=== PATIENT | female | born 1985 | race African-American/Black ===

== ENCOUNTER 2016-09-05 12:28 | Inpatient (IN) | payer OTHER ==
[2016-09-05 18:22] VITALS: BMI 23.3
--- NOTE | 2016-09-05 19:36 | HP ---
CIWA Score - CIWA Score Nausea/Vomitin-Mild Nausea/No Vomiting Muscle Tremors: 4-Moderate,w/Arms Extend Anxiety: 4-Mod. Anxious/Guarded Agitation: 4-Moderately Restless Paroxysmal Sweats: 1-Minimal Palms Moist Orientation: 1-Uncertain about Date Tacttile Disturbances: 0-None Auditory Disturbances: 0-None Visual Disturbances: 0-None Headache: 0-None Present CIWA-Ar Total Score: 15 Admission ROS BHS - HPI Chief Complaint: withdrawal sx Allergies/Adverse Reactions: Allergies Allergy/AdvReac Type Severity Reaction Status Date / Time No Known Drug Allergies Allergy Verified 11/23/14 19:17 History of Present Illness: 31 YEARS OLD FEMALE WITH LONG HISTORY OF ALCOHOL COCAINE MARIJUANA DEPENDENCE HAS ASTHMA ECZEMA DENIES MENTAL ILLNESS IS ADMITTED TO DETOX Exam Limitations: No Limitations - Ebola screening Have you traveled outside of the country in the last 21 days: No Have you had contact with anyone from an Ebola affected area: No Have you been sick,other than usual withdrawal symptoms: No Do you have a fever: No - Review of Systems Constitutional: Chills, Loss of Appetite, Changes in sleep, Unintentional Wgt. Loss, Unexplained wgt Loss EENT: reports: No Symptoms Reported Respiratory: reports: No Symptoms reported Cardiac: reports: No Symptoms Reported GI: reports: Nausea, Poor Appetite, Poor Fluid Intake, Abdominal cramping : reports: No Symptoms Reported Musculoskeletal: reports: No Symptoms Reported Integumentary: reports: No Symptoms Reported, Lesions (ECZEMA) Neuro: reports: Tremors Endocrine: reports: No Symptoms Reported Hematology: reports: No Symptoms Reported Psychiatric: reports: Judgement Intact, Mood/Affect Appropiate Other Systems: Reviewed and Negative Patient History - Patient Medical History Hx Anemia: No Hx Asthma: Yes (Pt is on Singulair/Albuterol IH) Hx Chronic Obstructive Pulmonary Disease (COPD): No Hx Cancer: No Hx Cardiac Disorders: No Hx Congestive Heart Failure: No Hx Hypertension: No Hx Hypercholesterolemia: No Hx Pacemaker: No HX Cerebrovascular Accident: No Hx Seizures: No Hx Dementia: No Hx Diabetes: No Hx Gastrointestinal Disorders: No Hx Liver Disease: No Hx Genitourinary Disorders: No Hx Sexually Transmitted Disorders: No Hx Renal Disease (ESRD): No Hx Thyroid Disease: No Hx Human Immunodeficiency Virus (HIV): No Hx Hepatitis C: No Hx Depression: No Hx Suicide Attempt: No Hx Bipolar Disorder: No Hx Schizophrenia: No - Patient Surgical History Past Surgical History: Yes Hx Neurologic Surgery: No Hx Cataract Extraction: No Hx Cardiac Surgery: No Hx Lung Surgery: No Hx Breast Surgery: No Hx Breast Biopsy: No Hx Abdominal Surgery: No Hx Appendectomy: No Hx Cholecystectomy: No Hx Genitourinary Surgery: No Hx Section: No Hx Orthopedic Surgery: Yes (FX L GREAT TOE WITH HARDWARE) Hx Hysterectomy: No Anesthesia Reaction: No - PPD History Previous Implant?: Yes Documented Results: Negative w/o proof Implanted On Prior [facility] Admission?: No PPD to be Administered?: Yes - Reproductive History Patient is a Female of Child Bearing Age (11 -55 yrs old): Yes Last Menstrual Period: 08/27/16 Patient : No - Smoking Cessation Smoking history: Never smoked Have you smoked in the past 12 months: No Hx Chewing Tobacco Use: No Initiated information on smoking cessation: No - Substance & Tx. History Hx Alcohol Use: Yes Hx Substance Use: Yes Substance Use Type: Alcohol, Cocaine, Marijuana Hx Substance Use Treatment: No - Substances Abused Alcohol Route: Oral Frequency: Daily Amount used: Beer 2-3 x 40oz Age of first use: 14 Date of Last Use: 09/05/16 Cocaine Route: Smoking Frequency: Daily Amount used: $200 Age of first use: 19 Date of Last Use: 09/04/16 Marijuana/Hashish Route: Smoking Frequency: Daily Amount used: $15 Age of first use: 12 Date of Last Use: 09/04/16 Family Disease History - Family Disease History Family Disease History: Diabetes: Sister, Heart Disease: Mother, Respiratory: Mother, Other: Father () Admission Physical Exam [facility] - Vital Signs Vital Signs: Vital Signs - 24 hr 09/05/16 18:20 Temperature 98.8 F Pulse Rate 74 Respiratory 16 Rate Blood Pressure 146/90 - Physical General Appearance: Yes: Appropriately Dressed, Mild Distress, Thin, Tremorous, Irritable, Sweating, Anxious HEENTM: Yes: Hearing grossly Normal, Normal ENT Inspection, Normocephalic, Normal Voice Respiratory: Yes: Chest Non-Tender, Lungs Clear, Normal Breath Sounds, No Respiratory Distress, No Accessory Muscle Use Neck: Yes: Supple, Trachea in good position Breast: Yes: Breasts Symetrical Cardiology: Yes: Regular Rhythm, Regular Rate, S1, S2 Abdominal: Yes: Non Tender, Soft Genitourinary: Yes: Within Normal Limits Back: Yes: Normal Inspection Musculoskeletal: Yes: full range of Motion, Gait Steady Extremities: Yes: Normal Range of Motion, Non-Tender, Tremors Neurological: Yes: Alert, Motor Strength 5/5, Normal Mood/Affect, Normal Response Integumentary: Yes: Dry, Warm, Other (ECZEMA) Lymphatic: Yes: Within Normal Limits - Diagnostic (1) Alcohol dependence with uncomplicated withdrawal Current Visit: Yes Status: Acute (2) Cocaine dependence, uncomplicated Current Visit: Yes Status: Chronic (3) Cannabis dependence, uncomplicated Current Visit: Yes Status: Chronic (4) Eczema Current Visit: Yes Status: Chronic Qualifiers: Eczema type: flexural Qualified Code(s): L20.82 - Flexural eczema (5) Weight loss Current Visit: Yes Status: Acute (6) Asthma Current Visit: Yes Status: Chronic Qualifiers: Asthma severity: mild intermittent Asthma complication type: with status asthmaticus Qualified Code(s): J45.22 - Mild intermittent asthma with status asthmaticus (7) Hepatitis C antibody test positive Current Visit: Yes Status: Resolved Cleared for Admission [facility] - Detox or Rehab [facility] Level of Care: Medically Managed Detox Regimen/Protocol: Librium [facility] Breath Alcohol Content Breath Alcohol Content: 0 Urine Pregancy Test - Result Urine Test Results: Negative- NO Line Present Urine Drug Screen - Results Drug Screen Negative: No Urine Drug Screen Results: THC-Marijuana, BROOKE-Cocaine
[2016-09-05] MEDS ORDERED: MAGNESIUM CITRATE 300 ML BOTTLE PO PRN (19:37)
[2016-09-05] MEDS ORDERED: diphenhydrAMINE HCL 50 MG CAPSULE PO PRN (19:37)
[2016-09-05] MEDS ORDERED: MENTHOL/PHENOL 1 EACH UD MM PRN (19:37)
[2016-09-05] MEDS ORDERED: LOPERAMIDE HCL 2 MG CAPSULE PO PRN (19:37)
[2016-09-05] MEDS ORDERED: P-EPHED 60MG/TRIPROLIDI 2.5MG TABLET PO PRN (19:37)
[2016-09-05] MEDS ORDERED: ACETAMINOPHEN 325 MG TABLET (FP) PO PRN (19:37)
[2016-09-05] MEDS ORDERED: IBUPROFEN 400 MG TABLET (FP) PO PRN (19:37)
[2016-09-05] MEDS ORDERED: MAG HYDROX/AL HYDROX/SIMETH 30 ML UNIT-DOSE CUP PO PRN (19:37)
[2016-09-05] MEDS ORDERED: MAGNESIUM HYDROX 2400MG/30ML ORAL SUSPENSION 30 ML CUP PO PRN (19:37)
[2016-09-05] MEDS ORDERED: hydrOXYzine PAMOATE 50 MG CAPSULE (FP) PO PRN (19:37)
[2016-09-05] MEDS ORDERED: chlordiazePOXIDE HCL 25 MG CAPSULE PO PRN (19:37)
[2016-09-05] MEDS ORDERED: guaiFENesin/D-METHORPHAN HB 10 ML UNIT-DOSE CUPS PO PRN (19:37)
[2016-09-05] MEDS ORDERED: ALBUTEROL SO4 6.7 GM HFA INHALER IH PRN (19:39)
[2016-09-05] MEDS ORDERED: COLLOIDAL OATMEAL 1 BAR EACH TP PRN (19:39)
[2016-09-05] MEDS: chlordiazePOXIDE HCL 25 MG CAPSULE PO SCH ×2 (21:40→22:19)
[2016-09-05] MEDS: THIAMINE HCL 100 MG TABLET (FP) PO SCH (21:41)
[2016-09-05] MEDS: MINERAL OIL/PETROLAT/WATER TOPICAL CREAM 113 GM JAR TP SCH (22:18)
[2016-09-05 23:25] LABS: URINE APPEARANCE CLEAR; URINE BILIRUBIN NEGATIVE (NEGATIVE); URINE BLOOD NEGATIVE (NEGATIVE); URINE COLOR LTYELLOW; URINE GLUCOSE (UA) NEGATIVE (NEGATIVE); URINE KETONE NEGATIVE (NEGATIVE); URINE LEUK ESTERASE NEGATIVE (NEGATIVE); URINE NITRITE NEGATIVE (NEGATIVE); URINE PROTEIN NEGATIVE (NEGATIVE); URINE UROBILINOGEN NEGATIVE E.U./dl (0.2-1.0)
[2016-09-06] MEDS: chlordiazePOXIDE HCL 25 MG CAPSULE PO SCH ×4 (06:00→22:30)
[2016-09-06 09:57] LABS: MCH 28.9 pg (25.7-33.7); MEAN CELL VOLUME 90.1 fl (80-96); MEAN PLT VOLUME 8.5 fl (7.5-11.1); PLATELET COUNT 301 K/MM3 (134-434); RDW 18.4 % (11.6-15.6); WHITE BLOOD COUNT 4.5 K/mm3 (4.0-10.0)
[2016-09-06] MEDS ORDERED: MONTELUKAST NA 10 MG TABLET PO SCH (10:00)
[2016-09-06 10:26] LABS: ALBUMIN 3.2 g/dl (3.4-5.0); ALK PHOS 66 U/L (45-117); ANION GAP 6 (8-16); BILIRUBIN,TOTAL 0.2 mg/dL (0.2-1.0); CALCIUM 8.9 mg/dL (8.5-10.1); CO2 29 mmol/L (21-32); CREATININE 0.9 mg/dL (0.55-1.02); GLUCOSE,RANDOM 82 mg/dL (74-106); SGOT/AST 19 U/L (15-37); SGPT/ALT 24 U/L (12-78); TOT PROT 6.3 g/dl (6.4-8.2)
[2016-09-06] MEDS: PRENATAL VITAMINS W/ FOLIC ACID TABLET (FP) PO SCH (10:56)
[2016-09-06] MEDS ORDERED: ALBUTEROL SO4 6.7 GM HFA INHALER IH SCH (11:00)
[2016-09-06] MEDS ORDERED: FORMOTEROL FUMARATE 12 MCG IH SCH (11:15)
--- NOTE | 2016-09-06 11:15 | PN ---
S CIWA - CIWA Score Nausea/Vomitin-Mild Nausea/No Vomiting Muscle Tremors: 4-Moderate,w/Arms Extend Anxiety: 3 Agitation: 4-Moderately Restless Paroxysmal Sweats: 3 Orientation: 0-Oriented Tacttile Disturbances: 0-None Auditory Disturbances: 0-None Visual Disturbances: 0-None Headache: 1-Very Mild CIWA-Ar Total Score: 16 BHS Progress Note (SOAP) Subjective: sweats shakes interrupted sleep agitation body aches Objective: 09/06/16 11:14 Vital Signs Temperature 98.8 F 09/06/16 09:44 Pulse Rate 85 09/06/16 09:44 Respiratory Rate 20 09/06/16 09:44 Blood Pressure 111/61 09/06/16 09:44 O2 Sat by Pulse Oximetry (%) Laboratory Tests 09/05/16 09/06/16 09/06/16 23:10 07:00 07:00 WBC 4.5 RBC 3.79 Hgb 10.9 Hct 34.2 MCV 90.1 MCHC 32.0 RDW 18.4 H Plt Count 301 MPV 8.5 Sodium 140 Potassium 4.1 Chloride 105 Carbon Dioxide 29 Anion Gap 6 L BUN 13 Creatinine 0.9 Creat Clearance w eGFR > 60 Random Glucose 82 Calcium 8.9 Total Bilirubin 0.2 AST 19 ALT 24 Alkaline Phosphatase 66 Total Protein 6.3 L Albumin 3.2 L Urine Color Ltyellow Urine Appearance Clear Urine pH 6.0 Ur Specific [place] 1.020 Urine Protein Negative Urine Glucose (UA) Negative Urine Ketones Negative Urine Blood Negative Urine Nitrite Negative Urine Bilirubin Negative Urine Urobilinogen Negative Ur Leukocyte Esterase Negative awake/alert ambulating no acute distress Assessment: 09/06/16 11:14 withdrawal sx Plan: continue detox increase fluids water pitcher ordered motrin prn flexiril prn
--- NOTE | 2016-09-06 13:12 | EKG ---
Test Reason : Blood Pressure : / mmHG Vent. Rate : 072 BPM Atrial Rate : 072 BPM P-R Int : 142 ms QRS Dur : 092 ms QT Int : 396 ms P-R-T Axes : 027 051 060 degrees QTc Int : 433 ms NORMAL SINUS RHYTHM MINIMAL VOLTAGE CRITERIA FOR LVH, MAY BE NORMAL VARIANT BORDERLINE ECG WHEN COMPARED WITH ECG OF 31-JUL-2007 17:35, NONSPECIFIC T WAVE ABNORMALITY NO LONGER EVIDENT IN ANTERIOR LEADS Confirmed by ANDREW SHAW, WILFRID ([id number]) on 09/06/2016 1:11:51 PM Referred By: Confirmed By:WILFRID MORALES MD
[2016-09-06 14:06] LABS: HIV 1 & 2 AB NEGATIVE; HIV 1 AGp24 NEGATIVE
[2016-09-06] MEDS: THIAMINE HCL 100 MG TABLET (FP) PO SCH (22:30)
[2016-09-06] MEDS: MONTELUKAST NA 10 MG TABLET PO SCH (22:30)
[2016-09-06] MEDS: MINERAL OIL/PETROLAT/WATER TOPICAL CREAM 113 GM JAR TP SCH (23:26)
[2016-09-06] MEDS: BUDESONIDE/FORMETEROL FUMARATE 80/4.5 mcg INHALER IH SCH (23:27)
[2016-09-07] MEDS: chlordiazePOXIDE HCL 25 MG CAPSULE PO SCH ×3 (06:26→17:22)
[2016-09-07] MEDS: PRENATAL VITAMINS W/ FOLIC ACID TABLET (FP) PO SCH (10:42)
[2016-09-07] MEDS: IBUPROFEN 600 MG TABLET (FP) PO PRN (10:42)
[2016-09-07] MEDS: BUDESONIDE/FORMETEROL FUMARATE 80/4.5 mcg INHALER IH SCH ×2 (10:43→22:28)
[2016-09-07] MEDS ORDERED: CYCLOBENZAPRINE HCL 10 MG TABLET (FP) PO ONE (10:46)
--- NOTE | 2016-09-07 12:00 | PN ---
S CIWA - CIWA Score Nausea/Vomitin Muscle Tremors: 3 Anxiety: 4-Mod. Anxious/Guarded Agitation: 3 Paroxysmal Sweats: 3 Orientation: 0-Oriented Tacttile Disturbances: 2-Mild Itch/Numbness/Burn Auditory Disturbances: 2-Mild Harshness/Frighten Visual Disturbances: 0-None Headache: 0-None Present CIWA-Ar Total Score: 20 BHS Progress Note (SOAP) Subjective: Interrupted Sleep, Anxious, Body Aches. Objective: PT. A & O X 3, OBSERVED AMBULATING ON UNIT. 09/07/16 11:58 Vital Signs Temperature 97.7 F 09/07/16 10:00 Pulse Rate 90 09/07/16 10:00 Respiratory Rate 16 09/07/16 10:00 Blood Pressure 120/71 09/07/16 10:00 O2 Sat by Pulse Oximetry (%) Laboratory Tests 09/05/16 09/06/16 09/06/16 23:10 07:00 07:00 WBC 4.5 RBC 3.79 Hgb 10.9 Hct 34.2 MCV 90.1 MCHC 32.0 RDW 18.4 H Plt Count 301 MPV 8.5 Sodium Potassium Chloride Carbon Dioxide Anion Gap BUN Creatinine Creat Clearance w eGFR Random Glucose Calcium Total Bilirubin AST ALT Alkaline Phosphatase Total Protein Albumin Urine Color Ltyellow Urine Appearance Clear Urine pH 6.0 Ur Specific [place] 1.020 Urine Protein Negative Urine Glucose (UA) Negative Urine Ketones Negative Urine Blood Negative Urine Nitrite Negative Urine Bilirubin Negative Urine Urobilinogen Negative Ur Leukocyte Esterase Negative RPR Titer HIV 1&2 Antibody Screen Negative HIV P24 Antigen Negative 09/06/16 09/06/16 07:00 07:00 WBC RBC Hgb Hct MCV MCHC RDW Plt Count MPV Sodium 140 Potassium 4.1 Chloride 105 Carbon Dioxide 29 Anion Gap 6 L BUN 13 Creatinine 0.9 Creat Clearance w eGFR > 60 Random Glucose 82 Calcium 8.9 Total Bilirubin 0.2 AST 19 ALT 24 Alkaline Phosphatase 66 Total Protein 6.3 L Albumin 3.2 L Urine Color Urine Appearance Urine pH Ur Specific [place] Urine Protein Urine Glucose (UA) Urine Ketones Urine Blood Urine Nitrite Urine Bilirubin Urine Urobilinogen Ur Leukocyte Esterase RPR Titer Nonreactive HIV 1&2 Antibody Screen HIV P24 Antigen LABS NOTED. Assessment: 09/07/16 11:58 WITHDRAWAL SYMPTOMS. Plan: CONTINUE DETOX. AT PT.'S REQUEST, PSYCH CONSULT ORDERED (FOR HISTORY OF DEPRESSION, PTSD, AND BIPOLAR DISORDER).
--- NOTE | 2016-09-07 15:44 | CONSULT ---
[facility] Psychiatric Consult - Data Date of interview: 09/07/16 Admission source: [facility] Identifying data: First admission to [facility] for this 31 y/o AA female seeking detox treatment for alcohol,cocaine and marijuana dependence.Patient is single,a mother of nine,domiciled and employed. Substance Abuse History: - Smoking Cessation. Smoking history: Never smoked. Have you smoked in the past 12 months: No. Hx Chewing Tobacco Use: No. Initiated information on smoking cessation: No. - Substance & Tx. History. Hx Alcohol Use: Yes. Hx Substance Use: Yes. Substance Use Type: Alcohol, Cocaine , Marijuana. Hx Substance Use Treatment: No. - Substances Abused. Alcohol. Route: Oral. Frequency: Daily. Amount used: Beer 2-3 x 40oz. Age of first use: 14. Date of Last Use: 09/05/16. Cocaine. Route: Smoking. Frequency: Daily. Amount used: $200. Age of first use: 19. Date of Last Use: 09/04/16. Marijuana/Hashish. Route: Smoking. Frequency: Daily. Amount used: $15. Age of first use: 12. Date of Last Use: 09/04/16. Confirmed by patient. Medical History: Bronchial asthma,eczema and a history of orthosurgery (left great toe with hardware). Psychiatric History: No reported history of psychiatric hospitalizations.Patient declares that she was diagnosed with Bipolar Disorder. " I used to be on depakote and celexa.I stopped taking medications two years ago.I stopped because of the side effects.I need to be alert at my job.These things make me tired and sluggish." Ms Gould indicates that she is seeking her re-integration psychiatric care." I now understand the importance of these medications.I want to get back on seroquel,celexa and depakote but at small doses." Patient has an appoitment set up at the [facility].No history of suicide attempts. Physical/Sexual Abuse/Trauma History: Patient denies. Additional Comment: Urine Drug Screen Results: THC-Marijuana, BROOKE-Cocaine.Noted. Mental Status Exam - Mental Status Exam Alert and Oriented to: Time, Place, Person Cognitive Function: Good Patient Appearance: Well Groomed Mood: Withdrawn, Anxious Affect: Mood Congruent Patient Behavior: Fatigued, Appropriate, Cooperative Speech Pattern: Clear, Appropriate Voice Loudness: Normal Thought Process: Goal Oriented Thought Disorder: Not Present Hallucinations: Denies Suicidal Ideation: Denies Homicidal Ideation: Denies Insight/Judgement: Poor Sleep: Poorly, Difficulty falling asleep Appetite: Good Muscle strength/Tone: Normal Gait/Station: Normal Psychiatric Findings - Problem List ([place] 1, 2,3) (1) Alcohol dependence with uncomplicated withdrawal Current Visit: Yes Status: Acute (2) Cannabis dependence, uncomplicated Current Visit: Yes Status: Chronic (3) Cocaine dependence, uncomplicated Current Visit: Yes Status: Chronic (4) Substance induced mood disorder Current Visit: Yes Status: Acute (5) Bipolar disorder Current Visit: Yes Status: Chronic Comment: By history. (6) Asthma Current Visit: Yes Status: Chronic Qualifiers: Asthma severity: mild intermittent Asthma complication type: with status asthmaticus Qualified Code(s): J45.22 - Mild intermittent asthma with status asthmaticus (7) Eczema Current Visit: Yes Status: Chronic Qualifiers: Eczema type: flexural Qualified Code(s): L20.82 - Flexural eczema (8) Hepatitis C antibody test positive Current Visit: Yes Status: Resolved - Initial Treatment Plan Initial Treatment Plan: Psychoeducation.Detoxification.Medications : depakote 250 mg po bid + seroquel 50 mg po hs + lexapro 5 mg po daily.Side effects/ benefits of each drug are discussed with the patient.Labs reviewed : normal liver enzymes.She agrees to follow this plan of care.Observation.
[2016-09-07] MEDS: MONTELUKAST NA 10 MG TABLET PO SCH (22:29)
[2016-09-07] MEDS: chlordiazePOXIDE 5 MG CAPSULE PO SCH (22:29)
[2016-09-07] MEDS: THIAMINE HCL 100 MG TABLET (FP) PO SCH (22:29)
[2016-09-07] MEDS: QUEtiapine FUMARATE 50 MG TABLET PO SCH (22:29)
[2016-09-07] MEDS: DIVALPROEX SODIUM 250 MG TABLET E.C. (FP) PO SCH (22:29)
[2016-09-07] MEDS: MINERAL OIL/PETROLAT/WATER TOPICAL CREAM 113 GM JAR TP SCH (22:56)
[2016-09-08] MEDS: chlordiazePOXIDE 5 MG CAPSULE PO SCH ×3 (06:40→17:42)
[2016-09-08] MEDS: IBUPROFEN 600 MG TABLET (FP) PO PRN (10:34)
[2016-09-08] MEDS: PRENATAL VITAMINS W/ FOLIC ACID TABLET (FP) PO SCH (10:34)
[2016-09-08] MEDS: ESCITALOPRAM OXALATE 10 MG TABLET (FP) PO SCH (10:35)
[2016-09-08] MEDS: CYCLOBENZAPRINE HCL 10 MG TABLET (FP) PO PRN ×2 (10:35→22:54)
[2016-09-08] MEDS: DIVALPROEX SODIUM 250 MG TABLET E.C. (FP) PO SCH ×2 (10:35→22:54)
[2016-09-08] MEDS: BUDESONIDE/FORMETEROL FUMARATE 80/4.5 mcg INHALER IH SCH ×2 (10:36→22:54)
--- NOTE | 2016-09-08 16:36 | PN ---
BHS Progress Note (SOAP) Subjective: Body Aches, Anxious, H/A, Interrupted sleep. Objective: PT. A & O X 3. 09/08/16 16:35 Vital Signs Temperature 98.2 F 09/08/16 14:41 Pulse Rate 80 09/08/16 14:41 Respiratory Rate 16 09/08/16 14:41 Blood Pressure 101/63 09/08/16 14:41 O2 Sat by Pulse Oximetry (%) Laboratory Tests 09/05/16 09/06/16 09/06/16 23:10 07:00 07:00 WBC 4.5 RBC 3.79 Hgb 10.9 Hct 34.2 MCV 90.1 MCHC 32.0 RDW 18.4 H Plt Count 301 MPV 8.5 Sodium Potassium Chloride Carbon Dioxide Anion Gap BUN Creatinine Creat Clearance w eGFR Random Glucose Calcium Total Bilirubin AST ALT Alkaline Phosphatase Total Protein Albumin Urine Color Ltyellow Urine Appearance Clear Urine pH 6.0 Ur Specific [place] 1.020 Urine Protein Negative Urine Glucose (UA) Negative Urine Ketones Negative Urine Blood Negative Urine Nitrite Negative Urine Bilirubin Negative Urine Urobilinogen Negative Ur Leukocyte Esterase Negative RPR Titer HIV 1&2 Antibody Screen Negative HIV P24 Antigen Negative 09/06/16 09/06/16 07:00 07:00 WBC RBC Hgb Hct MCV MCHC RDW Plt Count MPV Sodium 140 Potassium 4.1 Chloride 105 Carbon Dioxide 29 Anion Gap 6 L BUN 13 Creatinine 0.9 Creat Clearance w eGFR > 60 Random Glucose 82 Calcium 8.9 Total Bilirubin 0.2 AST 19 ALT 24 Alkaline Phosphatase 66 Total Protein 6.3 L Albumin 3.2 L Urine Color Urine Appearance Urine pH Ur Specific [place] Urine Protein Urine Glucose (UA) Urine Ketones Urine Blood Urine Nitrite Urine Bilirubin Urine Urobilinogen Ur Leukocyte Esterase RPR Titer Nonreactive HIV 1&2 Antibody Screen HIV P24 Antigen LABS NOTED. Assessment: 09/08/16 16:35 WITHDRAWAL SYMPTOMS. Plan: CONTINUE DETOX.
[2016-09-08] MEDS: QUEtiapine FUMARATE 50 MG TABLET PO SCH (22:54)
[2016-09-08] MEDS: THIAMINE HCL 100 MG TABLET (FP) PO SCH (22:54)
[2016-09-08] MEDS: MONTELUKAST NA 10 MG TABLET PO SCH (22:54)
[2016-09-08 23:24] VITALS: TEMP 98.1
[2016-09-08] MEDS: MINERAL OIL/PETROLAT/WATER TOPICAL CREAM 113 GM JAR TP SCH (23:29)
[2016-09-08] MEDS: chlordiazePOXIDE HCL 10 MG CAPSULE PO SCH (23:31)
[2016-09-09] MEDS: chlordiazePOXIDE HCL 10 MG CAPSULE PO SCH (06:32)
[2016-09-09] MEDS: IBUPROFEN 600 MG TABLET (FP) PO PRN (06:36)
--- NOTE | 2016-09-09 09:13 | DS ---
[facility] Detox Discharge Summary Admission Date: 09/05/16 Discharge Date: 09/09/16 - History Present History: Alcohol Dependence, Cocaine Dependence Pertinent Past History: Asthma Hep C Eczema - Physical Exam Results Vital Signs: Vital Signs Temperature 98.1 F 09/09/16 06:38 Pulse Rate 72 09/09/16 06:38 Respiratory Rate 18 09/09/16 06:38 Blood Pressure 110/64 09/09/16 06:38 O2 Sat by Pulse Oximetry (%) Pertinent Admission Physical Exam Findings: Withdrawal sx Laboratory Last Values WBC 4.5 K/mm3 (4.0-10.0) 09/06/16 07:00 RBC 3.79 M/mm3 (3.60-5.2) 09/06/16 07:00 Hgb 10.9 GM/dL (10.7-15.3) 09/06/16 07:00 Hct 34.2 % (32.4-45.2) 09/06/16 07:00 MCV 90.1 fl (80-96) 09/06/16 07:00 MCHC 32.0 g/dl (32.0-36.0) 09/06/16 07:00 RDW 18.4 % (11.6-15.6) H 09/06/16 07:00 Plt Count 301 K/MM3 (134-434) 09/06/16 07:00 MPV 8.5 fl (7.5-11.1) 09/06/16 07:00 Sodium 140 mmol/L (136-145) 09/06/16 07:00 Potassium 4.1 mmol/L (3.5-5.1) 09/06/16 07:00 Chloride 105 mmol/L (98-107) 09/06/16 07:00 Carbon Dioxide 29 mmol/L (21-32) 09/06/16 07:00 Anion Gap 6 (8-16) L 09/06/16 07:00 BUN 13 mg/dL (7-18) 09/06/16 07:00 Creatinine 0.9 mg/dL (0.55-1.02) 09/06/16 07:00 Creat Clearance w eGFR > 60 (>60) 09/06/16 07:00 Random Glucose 82 mg/dL (74-106) 09/06/16 07:00 Calcium 8.9 mg/dL (8.5-10.1) 09/06/16 07:00 Total Bilirubin 0.2 mg/dL (0.2-1.0) 09/06/16 07:00 AST 19 U/L (15-37) 09/06/16 07:00 ALT 24 U/L (12-78) 09/06/16 07:00 Alkaline Phosphatase 66 U/L (45-117) 09/06/16 07:00 Total Protein 6.3 g/dl (6.4-8.2) L 09/06/16 07:00 Albumin 3.2 g/dl (3.4-5.0) L 09/06/16 07:00 Urine Color Ltyellow 09/05/16 23:10 Urine Appearance Clear 09/05/16 23:10 Urine pH 6.0 (5.0-8.0) 09/05/16 23:10 Ur Specific [place] 1.020 (1.005-1.025) 09/05/16 23:10 Urine Protein Negative (NEGATIVE) 09/05/16 23:10 Urine Glucose (UA) Negative (NEGATIVE) 09/05/16 23:10 Urine Ketones Negative (NEGATIVE) 09/05/16 23:10 Urine Blood Negative (NEGATIVE) 09/05/16 23:10 Urine Nitrite Negative (NEGATIVE) 09/05/16 23:10 Urine Bilirubin Negative (NEGATIVE) 09/05/16 23:10 Urine Urobilinogen Negative E.U./dl (0.2-1.0) 09/05/16 23:10 Ur Leukocyte Esterase Negative (NEGATIVE) 09/05/16 23:10 RPR Titer Nonreactive (NONREACTIVE) 09/06/16 07:00 HIV 1&2 Antibody Screen Negative 09/06/16 07:00 HIV P24 Antigen Negative 09/06/16 07:00 labs noted - Treatment Hospital Course: Detox Protocol Followed, Detoxed Safely, Responded well, Discharged Condition Good, Rehab Referral Accepted Patient has Accepted a Rehab Referral to: [facility] - Medication Discharge Medications: Ambulatory Orders Acetaminophen [Tylenol .Extra-Strength -] 1,000 mg PO Q8H PRN 11/09/13 Albuterol Sulfate Inhaler - [Ventolin Hfa Inhaler -] 2 inh PO Q4H 09/05/16 Formoterol Fumarate [Foradil (Nf) -] 12 mcg IH BID 09/05/16 Loratadine [Claritin -] 10 mg PO DAILY 09/05/16 Montelukast Na [Singulair -] 10 mg PO HS 09/05/16 - Diagnosis (1) Alcohol dependence with uncomplicated withdrawal Current Visit: Yes Status: Acute (2) Substance induced mood disorder Current Visit: Yes Status: Acute (3) Asthma Current Visit: Yes Status: Chronic Qualifiers: Asthma severity: mild intermittent Asthma complication type: with status asthmaticus Qualified Code(s): J45.22 - Mild intermittent asthma with status asthmaticus (4) Cannabis dependence, uncomplicated Current Visit: Yes Status: Chronic (5) Cocaine dependence, uncomplicated Current Visit: Yes Status: Chronic (6) Eczema Current Visit: Yes Status: Chronic Qualifiers: Eczema type: flexural Qualified Code(s): L20.82 - Flexural eczema (7) Hepatitis C antibody test positive Current Visit: Yes Status: Resolved (8) Bipolar disorder Current Visit: Yes Status: Chronic - AMA Did Patient Leave Against Medical Advice: No
[2016-09-09] MEDS: PRENATAL VITAMINS W/ FOLIC ACID TABLET (FP) PO SCH (09:51)
[2016-09-09] MEDS: DIVALPROEX SODIUM 250 MG TABLET E.C. (FP) PO SCH (09:53)
[2016-09-09] MEDS: BUDESONIDE/FORMETEROL FUMARATE 80/4.5 mcg INHALER IH SCH (09:54)
[2016-09-09] MEDS: ESCITALOPRAM OXALATE 10 MG TABLET (FP) PO SCH (10:00)
[2016-09-09 11:09] VITALS: BP 110/67; PULSE 84
== END 2016-09-09 10:16 | disposition home or self-care (01) | DRG 774 ==
LOC: YASAS 12:28 → Y6N 19:02
PROVIDERS: ADMIT Internal Medicine Addiction Medicine; ATTEND Internal Medicine Addiction Medicine
PROC: HZ2ZZZZ Detoxification Services for Substance Abuse Treatment (ICD-10-PCS; principal; 2016-09-05)
DX: F10.230 Alcohol dependence with withdrawal, uncomplicated (principal); F14.20 Cocaine dependence, uncomplicated; F12.20 Cannabis dependence, uncomplicated; F19.24 Other psychoactive substance dependence with psychoactive substance-induced mood disorder; F31.9 Bipolar disorder, unspecified; J45.22 Mild intermittent asthma with status asthmaticus; L20.82 Flexural eczema; B18.2 Chronic viral hepatitis C; Z87.898 Personal history of other specified conditions
CPT/HCPCS: 36415; 80053; 81003; 85027; 86593; 87389; 93005; 93010

== ENCOUNTER 2021-02-20 13:00 | Emergency (ER) | payer OTHER ==
[2021-02-20 13:22] VITALS: BP 125/79; PULSE 102; TEMP 97.9; BMI 25.4
[2021-02-20] MEDS ORDERED: SODIUM CHLORIDE 1,000 ML IV STA (13:55)
[2021-02-20] MEDS ORDERED: ONDANSETRON 4 MG/2 ML VIAL IVPUSH ONE (13:55)
[2021-02-20] MEDS ORDERED: ACETAMINOPHEN 1000 MG/100 ML VIAL IVPB ONE (13:55)
[2021-02-20 14:47] LABS: HCG,QUALITATIVE URINE Negative
[2021-02-20 14:48] LABS: EPI CELLS 9 /uL (0-25.1); HYALINE CASTS 8 /uL (0-3.1); URINE APPEARANCE CLEAR; URINE BACTERIA 684 /uL (0-1359); URINE BILIRUBIN NEGATIVE (NEGATIVE); URINE COLOR YELLOW; URINE GLUCOSE (UA) NEGATIVE (NEGATIVE); URINE KETONE 1+ (NEGATIVE); URINE LEUK ESTERASE 2+ (NEGATIVE); URINE NITRITE NEGATIVE (NEGATIVE); URINE PROTEIN 1+ (NEGATIVE); URINE RBC 25 /uL (0-23.9); URINE UROBILINOGEN 0.2 mg/dL (0.2-1.0); URINE WBC 729 /uL (0-25.8)
[2021-02-20] MEDS ORDERED: ONDANSETRON 4 MG/2 ML VIAL ONE (14:56)
[2021-02-20] MEDS ORDERED: ACETAMINOPHEN INJECTION 100 ML IVPB ONE (14:56)
[2021-02-20 15:37] LABS: BASO % 0.8 % (0-2.0); EOS % 1.9 % (0-4.5); HEMATOCRIT 31.2 % (32.4-45.2); HEMOGLOBIN 10.6 GM/dL (10.7-15.3); LYMPH % 20.6 % (8-40); MCH 29.7 pg (25.7-33.7); MCHC 34.2 g/dl (32.0-36.0); MEAN CELL VOLUME 86.9 fl (80-96); MEAN PLT VOLUME 7.7 fl (7.5-11.1); MONO % 8.8 % (3.8-10.2); NEUT % 67.9 % (42.8-82.8); PLATELET COUNT 362 10^3/uL (134-434); RBC 3.58 M/mm3 (3.60-5.2); RDW 14.2 % (11.6-15.6); WHITE BLOOD COUNT 11.2 K/mm3 (4.0-10.0)
[2021-02-20 16:02] LABS: CALCIUM 9.7 mg/dL (8.5-10.1)
[2021-02-20 16:03] LABS: ALBUMIN 3.6 g/dl (3.4-5.0); BLOOD UREA NITROGEN 5.9 mg/dL (7-18)
[2021-02-20 16:06] LABS: CREATININE 0.7 mg/dL (0.55-1.3)
[2021-02-20 16:07] LABS: BILIRUBIN,TOTAL 0.6 mg/dL (0.2-1); TOT PROT 7.8 g/dl (6.4-8.2)
[2021-02-20 16:29] LABS: INR 1.14 (0.83-1.09); PROTHROMBIN TIME (PATIENT) 12.8 SEC (9.7-13.0)
== END 2021-02-20 20:33 | disposition home or self-care (01) ==
LOC: JER 13:00
PROC: 3E033NZ Introduction of Analgesics, Hypnotics, Sedatives into Peripheral Vein, Percutaneous Approach (ICD-10-PCS; principal; 2021-02-20)
PROC: 3E033GC Introduction of Other Therapeutic Substance into Peripheral Vein, Percutaneous Approach (ICD-10-PCS; 2021-02-20)
PROC: 3E0337Z Introduction of Electrolytic and Water Balance Substance into Peripheral Vein, Percutaneous Approach (ICD-10-PCS; 2021-02-20)
DX: N10 Acute pyelonephritis (principal)
CPT/HCPCS: 36415; 74177-TC; 80053; 81003; 83690; 84703; 85025; 85610; 87086; 87186; 87491; 87591; 99285-25; J0131; Q9967